=== PATIENT | female | born 1955 | race Hispanic/Latino ===

== ENCOUNTER 2016-10-17 15:36 | Outpatient (CLI) | payer BC | END 2016-10-17 15:37 | disposition home or self-care (01) | LOC: LAB 15:36 | PROVIDERS: ATTEND Internal Medicine Hematology & Oncology | DX: C50.212 Malignant neoplasm of upper-inner quadrant of left female breast (principal); D64.9 Anemia, unspecified | CPT/HCPCS: 36415; 86300 ==

== ENCOUNTER 2016-12-30 11:24 | Outpatient (CLI) | payer BC ==
[2016-12-30 11:38] LABS: Basophils % (Auto) 0.5 % (0.0-1.8); Eosinophils % (Auto) 1.9 % (0.0-4.3); Hemoglobin 10.9 gm/dl (10.1-14.3); Mean Corpuscular HGB Conc 33 % (30-34); Mean Corpuscular Hemoglobin 27 pg (28-32); Mean Corpuscular Volume 81 fl (79-97); Platelet Count 287 K/mm3 (140-440); Red Cell Distribution Width 13.4 % (13.2-15.2); White Blood Count 7.2 K/mm3 (4.5-11.0)
[2016-12-30 11:59] LABS: Alanine Aminotransferase 20 units/L (7-56); Albumin 4.3 g/dL (3.9-5); Albumin/Globulin Ratio 1.7 %; Alkaline Phosphatase 61 units/L (35-129); Anion Gap 19 mmol/L; Bilirubin,Total 0.2 mg/dL (0.1-1.2); Blood Urea Nitrogen 24 mg/dL (7-17); Calcium 9.6 mg/dL (8.4-10.2); Carbon Dioxide 23 mmol/L (22-30); Glucose 187 mg/dL (65-100); Potassium 4.8 mmol/L (3.6-5.0); Sodium 140 mmol/L (137-145); Total Protein 6.9 g/dL (6.3-8.2)
== END 2016-12-30 11:25 | disposition home or self-care (01) ==
LOC: LAB 11:24
PROVIDERS: ATTEND Internal Medicine Hematology & Oncology
DX: C50.212 Malignant neoplasm of upper-inner quadrant of left female breast (principal); D64.9 Anemia, unspecified
CPT/HCPCS: 36415; 80053; 85025; 86300

== ENCOUNTER 2017-04-30 13:14 | Outpatient (CLI) | payer BC ==
[2017-04-30 13:31] LABS: Hematocrit 35.2 % (30.3-42.9); Hemoglobin 11.5 gm/dl (10.1-14.3); Mean Corpuscular HGB Conc 33 % (30-34); Mean Corpuscular Hemoglobin 27 pg (28-32); Mean Corpuscular Volume 82 fl (79-97); Platelet Count 320 K/mm3 (140-440); Red Blood Count 4.29 M/mm3 (3.65-5.03); Red Cell Distribution Width 13.7 % (13.2-15.2); White Blood Count 8.2 K/mm3 (4.5-11.0)
[2017-04-30 13:54] LABS: Alanine Aminotransferase 20 units/L (7-56); Albumin 4.1 g/dL (3.9-5); Albumin/Globulin Ratio 1.4 %; Alkaline Phosphatase 61 units/L (35-129); Anion Gap 20 mmol/L; Blood Urea Nitrogen 27 mg/dL (7-17); Calcium 9.3 mg/dL (8.4-10.2); Carbon Dioxide 24 mmol/L (22-30); Chloride 100.8 mmol/L (98-107); Glucose 156 mg/dL (65-100); Sodium 140 mmol/L (137-145); Total Protein 7.1 g/dL (6.3-8.2)
== END 2017-04-30 13:15 | disposition home or self-care (01) ==
LOC: LAB 13:14
PROVIDERS: ATTEND Internal Medicine Hematology & Oncology
DX: C50.212 Malignant neoplasm of upper-inner quadrant of left female breast (principal)
CPT/HCPCS: 36415; 80053; 85027; 86300

== ENCOUNTER 2017-05-11 10:21 | Outpatient (CLI) | payer BC ==
--- NOTE | 2017-05-11 11:23 | Mammography Report ---
Screening right mammogram: Left mastectomy. Heterogeneously dense right breast pattern with no suspicious findings and no changes when compared to exams dating back to 2015. CAD used. Impression: Stable right breast pattern post left mastectomy. Recommendation: Annual mammogram followup. BI-RADS CATEGORY: 1 = Negative ACR BI-RADS MAMMOGRAPHIC CODES: 0 = Needs additional imaging evaluation; 1 = Negative; 2 = Benign; 3 = Probably benign; 4 = Suspicious; 5 = Malignant; 6 = Known biopsy-proven malignancy COMMENT: 1. Dense breast tissue, i.e., adenosis, fibrocystic changes, etc., may obscure an underlying neoplasm. 2. Approximately 10% of cancers are not detected with mammography. 3. A negative mammography report should not delay biopsy if a clinically suspicious mass is present.
== END 2017-05-11 10:22 | disposition home or self-care (01) ==
LOC: SPVWC 10:21
PROVIDERS: ATTEND Internal Medicine Hematology & Oncology
DX: Z12.31 Encounter for screening mammogram for malignant neoplasm of breast (principal); Z90.12 Acquired absence of left breast and nipple
CPT/HCPCS: G0202-52

== ENCOUNTER 2017-05-21 09:07 | Outpatient (CLI) | payer BC ==
--- NOTE | 2017-05-22 10:14 | PET Report ---
PET/CT:05/21/17 09:07:00 CLINICAL: Breast cancer restaging. RADIOPHARMACEUTICAL: 12.37mCi F18-FDG. COMPARISON: 06/14/13 PET/CT TECHNIQUE- Following intravenous injection of F-18 FDG and an approximately 60 minute uptake period, CT and PET images from the mid skull to the upper thighs were acquired with the patient in the fasted state. No contrast was administered. The CT protocol used for this PET CT study is designed for attenuation correction and anatomic localization of PET abnormalities. This sales agent insurance CT is not desired to produce and cannot replace, uvyhj-ld-ccz-art diagnostic CT scans with specific imaging protocols for different body parts and indications. Plasma glucose at the time of this test: 187g/dl. The standardized uptake values (SUV) are normalized to patient body weight and indicate the highest activity concentration (SUV max) in a given disease site. FINDINGS: Brain--Physiologic FDG uptake in the visualized regions of the brain. Neck--Physiologic FDG uptake . Chest--Physiologic FDG uptake in mediastinal blood pool and myocardium. Lungs--No abnormal uptake. No pulmonary nodule or mass. Pleura/pericardium--No abnormal uptake. Thoracic nodes--No abnormal uptake. Hepatobiliary--No abnormal uptake. Liver background SUV mean, as a reference for comparing FDG studies, is 5.2 compared to 2.4 on the last exam. No liver mass. Spleen--No abnormal uptake. Pancreas--No abnormal uptake. Adrenal Glands--No abnormal uptake. Kidneys/Ureters/Bladder--No abnormal uptake. Abdominopelvic Nodes--No abnormal uptake. Bowel/Peritoneum/Mesentery--No abnormal uptake. Pelvic organs--No abnormal uptake. Bones/Soft Tissues--No abnormal uptake. Other findings: Status post left mastectomy. Physiologic uptake in small and large bowel. IMPRESSION- Negative study with no evidence of metastasis.The increased FDG uptake in the liver is probably related to a high blood glucose level.
== END 2017-05-21 09:08 | disposition home or self-care (01) ==
LOC: PET 09:07
PROVIDERS: ATTEND Internal Medicine Hematology & Oncology
DX: C50.212 Malignant neoplasm of upper-inner quadrant of left female breast (principal); D64.9 Anemia, unspecified; Z79.899 Other long term (current) drug therapy; Z90.12 Acquired absence of left breast and nipple
CPT/HCPCS: 78815; 82962; A9552

== ENCOUNTER 2018-05-05 08:59 | Outpatient (CLI) | payer BC ==
[2018-05-05 09:17] LABS: Hematocrit 37.2 % (30.3-42.9); Hemoglobin 12.2 gm/dl (10.1-14.3); Mean Corpuscular HGB Conc 33 % (30-34); Mean Corpuscular Hemoglobin 27 pg (28-32); Mean Corpuscular Volume 82 fl (79-97); Platelet Count 315 K/mm3 (140-440); Red Blood Count 4.52 M/mm3 (3.65-5.03); Red Cell Distribution Width 13.8 % (13.2-15.2)
[2018-05-05 09:32] LABS: Albumin 4.3 g/dL (3.9-5); Calcium 9.9 mg/dL (8.4-10.2)
== END 2018-05-05 09:00 | disposition home or self-care (01) ==
LOC: LAB 08:59
PROVIDERS: ATTEND Internal Medicine Hematology & Oncology
DX: C50.212 Malignant neoplasm of upper-inner quadrant of left female breast (principal)
CPT/HCPCS: 36415; 80053; 85027; 86300

== ENCOUNTER 2018-05-14 14:56 | Outpatient (CLI) | payer BC ==
--- NOTE | 2018-05-17 14:50 | Mammography Report ---
RIGHT DIGITAL SCREENING MAMMOGRAM with CAD: 05/14/18 14:56:00 CLINICAL: Routine screening. Breast cancer survivor status post left mastectomy. COMPARISON:05/11/17 FINDINGS: The breast is heterogeneously dense, which may obscure small masses.No mass, architectural distortion or suspicious calcifications. IMPRESSION: No mammographic evidence of malignancy. BI-RADS CATEGORY: 1 - - Negative RECOMMENDATION: Routine screening in one year. ACR BI-RADS MAMMOGRAPHIC CODES: 0 = Needs additional imaging evaluation; 1 = Negative; 2 = Benign; 3 = Probably benign; 4 = Suspicious; 5 = Malignant; 6 = Known biopsy-proven malignancy COMMENT: 1. Dense breast tissue, i.e., adenosis, fibrocystic changes, etc., may obscure an underlying neoplasm. 2. Approximately 10% of cancers are not detected with mammography. 3. A negative mammography report should not delay biopsy if a clinically suspicious mass is present. COMMENT: Patient follow-up letters are generated via our [employer] application.
== END 2018-05-14 14:57 | disposition home or self-care (01) ==
LOC: SPVWC 14:56
PROVIDERS: ATTEND Internal Medicine Hematology & Oncology
DX: Z12.31 Encounter for screening mammogram for malignant neoplasm of breast (principal)

== ENCOUNTER 2019-05-05 09:55 | Outpatient (CLI) | payer MEDICARE ==
--- NOTE | 2019-05-05 10:39 | Mammography Report ---
DIGITAL SCREENING MAMMOGRAM WITH CAD, 05/05/2019 INDICATION: Routine screening mammography. Patient has history of left breast cancer treated with mas tectomy. TECHNIQUE: Digital right 2D mammography was obtained in the craniocaudal and mediolateral oblique pr ojections. This examination was interpreted with the benefit of Computer-Aided Detection analysis. COMPARISON: 04/06/2015, 05/14/2018 FINDINGS: Breast Density: The breasts are heterogeneously dense, which may obscure small masses. There is no evidence of dominant mass, suspicious calcifications or architectural distortion in the r ight breast. No interval change from prior exam. IMPRESSION: No evidence of malignancy. BI-RADS Category 1: Negative. No mammographic evidence of malignancy. Recommend routine screening m ammography in one year. A "normal" or negative report should not discourage follow up or biopsy of a clinically significant f inding. A written summary of these findings will be mailed to the patient. The patient will be entered into a mammography reporting system which will generate a reminder letter for the patient's next appointmen t at the appropriate interval. The [employer] recommends yearly mammograms starting at age 40 and continuing as l génesis as a woman is in good health. Breast MRI is recommended for women with an approximate 20-25% or greater lifetime risk of breast cancer, including women with a strong family history of breast or ova leticia cancer or who have been treated for Hodgkin's disease. Signer Name: Khadra Flores MD Signed: 05/05/2019 10:35 AM Workstation Name: [id number]
== END 2019-05-05 09:56 | disposition home or self-care (01) ==
LOC: SPVWC 09:55
PROVIDERS: ATTEND Internal Medicine Hematology & Oncology
DX: Z12.31 Encounter for screening mammogram for malignant neoplasm of breast (principal)

== ENCOUNTER 2019-07-07 06:39 | Outpatient (CLI) | payer MEDICARE ==
--- NOTE | 2019-07-07 10:31 | PET Report ---
PET/CT HISTORY: C50.212. Restaging of left breast cancer TECHNIQUE: The patient's fasting blood glucose was 144. The patient weighed 74 lbs. The patient wa s injected with 12.5 mCi of FDG in the right antecubital fossa at 0718 hours and imaging was started at 0810 hours. The patient was imaged from the skull base to the thighs. All CT scans at this locati on are performed using CT dose reduction for ALARA by means of automated exposure control. Images wer e reviewed on a workstation. COMPARISON: 05/21/2017 FINDINGS: IMAGED BRAIN: [Physiologic FDG uptake] NECK: [There is increased linear radiotracer uptake in the right side of the neck overlying the righ t internal jugular vein. Max SUV measures 3.7. No obvious mass or lymphadenopathy is identified in th is area on the CT images.] CHEST WALL: [Physiologic FDG uptake]. Stable left mastectomy changes. MEDIASTINUM: [Physiologic FDG uptake] LUNGS: [Physiologic FDG uptake]. No suspicious pulmonary nodule or mass has developed. HEPATOBILIARY: [Physiologic FDG uptake]. Liver SUV measures 3.7 as opposed to 5.2 on the previous ex am. PANCREAS: [Physiologic FDG uptake SPLEEN: [Physiologic FDG uptake] KIDNEYS/BLADDER: [Physiologic FDG uptake] ADRENAL GLANDS: [Physiologic FDG uptake] GI/MESENTERY: [Physiologic FDG uptake] PELVIC VISCERA: [Physiologic FDG uptake] LYMPH NODES: [Physiologic FDG uptake] OSSEOUS STRUCTURES: [Physiologic FDG uptake] ADDITIONAL FINDINGS: [There is mild muscular uptake in the posterior right neck, left shoulder and r ight hip region. IMPRESSION: Negative PET CT. No evidence for disease recurrence or metastasis. There is mild increased radiotracer uptake in the right internal jugular vein. Is there clinical conc isai for thrombophlebitis. No obvious right cervical lymphadenopathy is appreciated on the CT images. Please correlate with the patient. Signer Name: Aj Nye Jr, MD Signed: 07/07/2019 10:27 AM Workstation Name: [id number]
== END 2019-07-07 06:40 | disposition home or self-care (01) ==
LOC: PET 06:39
PROVIDERS: ATTEND Internal Medicine Hematology & Oncology
DX: C50.212 Malignant neoplasm of upper-inner quadrant of left female breast (principal); D64.9 Anemia, unspecified; R73.09 Other abnormal glucose
CPT/HCPCS: 78815; 82962; A9552

== ENCOUNTER 2019-07-19 09:19 | Outpatient (CLI) | payer MEDICARE ==
--- NOTE | 2019-07-19 15:24 | Vascular Lab Report ---
RIGHT UPPER EXTREMITY VENOUS DOPPLER ULTRASOUND HISTORY: Upper extremity pain and swelling. COMPARISON: None. TECHNIQUE: Grayscale, color and spectral Doppler imaging of the venous system of the right upper extr emity was performed. FINDINGS: Internal Jugular Vein: Normal grayscale appearance and flow. Subclavian Vein: Normal grayscale appearance and flow. Axillary Vein: Normal venous flow, compressibility and augmentation. Brachial vein: Normal venous flow, compressibility and augmentation. Radial vein: Normal venous flow, compressibility and augmentation. Ulnar vein: Normal venous flow, compressibility and augmentation. Basilic vein: Normal venous flow, compressibility and augmentation. Cephalic vein: Normal venous flow, compressibility and augmentation. Additional Findings: None. IMPRESSION: 1. No sonographic evidence of deep venous thrombosis in the right upper extremity. Signer Name: Aj Nye Jr, MD Signed: 07/19/2019 3:20 PM Workstation Name: [id number]
== END 2019-07-19 09:20 | disposition home or self-care (01) ==
LOC: VAS 09:19
PROVIDERS: ATTEND Internal Medicine Hematology & Oncology
DX: M79.601 Pain in right arm (principal); R22.31 Localized swelling, mass and lump, right upper limb; C50.212 Malignant neoplasm of upper-inner quadrant of left female breast; D64.9 Anemia, unspecified